=== PATIENT | female | born 1990 | race Two or more races ===

== ENCOUNTER 2019-08-27 11:36 | Outpatient (CLI) | payer OTHER | END 2019-08-27 11:41 | disposition home or self-care (01) | LOC: RX STUDY 11:36 | PROVIDERS: ATTEND Obstetrics & Gynecology Reproductive Endocrinology | DX: N93.0 Postcoital and contact bleeding (principal) ==

== ENCOUNTER → 2022-10-27 08:14 | Outpatient (CLI) | payer OTHER | END | disposition home or self-care (01) | LOC: LAB 08:14 | DX: D64.89 Other specified anemias (principal); N39.0 Urinary tract infection, site not specified; E03.8 Other specified hypothyroidism; E11.9 Type 2 diabetes mellitus without complications; Z11.3 Encounter for screening for infections with a predominantly sexual mode of transmission; E78.5 Hyperlipidemia, unspecified; A64 Unspecified sexually transmitted disease; N92.5 Other specified irregular menstruation ==

== ENCOUNTER 2022-11-06 09:34 | Outpatient (CLI) | payer OTHER | END 2022-11-06 09:42 | disposition home or self-care (01) | LOC: MAMO-SONO 09:34 | DX: N64.4 Mastodynia (principal); N80.00 Endometriosis of the uterus, unspecified; Z12.31 Encounter for screening mammogram for malignant neoplasm of breast ==

== ENCOUNTER → 2022-11-12 15:43 | Outpatient (CLI) | payer OTHER | END | disposition home or self-care (01) | LOC: LAB 15:43 | DX: N80.00 Endometriosis of the uterus, unspecified (principal) ==

== ENCOUNTER 2023-10-15 07:47 | Outpatient (CLI) | payer OTHER | END 2023-10-15 08:05 | disposition home or self-care (01) | LOC: RAD 07:47 | DX: R20.2 Paresthesia of skin (principal); M54.2 Cervicalgia; M54.50 Low back pain, unspecified; M79.643 Pain in unspecified hand; N80.00 Endometriosis of the uterus, unspecified ==

== ENCOUNTER 2024-08-22 08:20 | Outpatient (CLI) | payer OTHER | END 2024-08-22 08:29 | disposition home or self-care (01) | LOC: RAD 08:20 | DX: M54.16 Radiculopathy, lumbar region (principal) ==